=== PATIENT | male | born 1970 ===

== ENCOUNTER 2017-08-23 20:56 | Emergency (ER) | payer OTHER ==
[~2017-08-23] VITALS: Ht 175.3 cm; Wt 138.3 kg
--- NOTE | 2017-08-23 22:06 | ED DYSPNEA/ASTHMA COMPLAINT ---
History of Present Illness General Chief Complaint: Dyspnea (COPD, CHF, Other) Stated Complaint: UPPER AIRWAY IRRITATION Source: patient, family, old records, EMS Exam Limitations: no limitations Vital Signs & Intake/Output Vital Signs & Intake/Output Vital Signs Date Time Temp Pulse Resp B/P B/P Pulse O2 O2 Flow FiO2 Mean Ox Delivery Rate 08/23 2117 99 Nasal 2.0L Cannula 08/23 2105 98 Room Air 08/24 2103 98.1 124 18 163/89 98 Room Air Allergies Coded Allergies: No Known Allergies (08/23/17) Triage Note: PT BIBA FROM C/O IRRITATION TO UPPER AIRWAY. PT STATES AROUND 2019 HE PLACED A "STINK BOMB" FOR ROACHES IN HIS BATHROOM, PT THEN BEGAN TO CHOKE ON FUMES. PT ARRIVES WITH NO DISTRESS, STATES "I CAN BREATHE FINALLY" PER MEDIC, UPPER AIRWAY IRRIATION. HR ELEVATED 125, PLACED ON MONITOR. PT ARRIVED DIAPHORETIC WITH ONLY COMPLAINT OF IRRIATION TO THE THROAT. PT ABLE TO SPEAK FULL SENTENCES, A&0X3. PER MEDIC BACK OF "[facility]" CAN WAS CALLED AND COMPANY STATES "ACT LIKE TEAR GAS FOR HUMANS" Triage Nurses Notes Reviewed? yes Onset: Just prior to arrival Duration: minute(s):, constant, continues in ED Timing: recent history Severity: severe Activities at Onset: activity Prior Episodes/Possible Cause: irritant gases exposure Associated Symptoms: cough HPI: Prior to admission patient was using an insect bomb in the bathroom. He went into the bathroom to open the window began to have nonproductive cough difficulty breathing tearing eyes. He also complains of sore throat. He denies fever chills nausea vomiting diarrhea chest pain headache dysuria rash bleeding. Past History Travel History Traveled to [place] past 21 day No Medical History Any Pertinent Medical History? see below for history Cardiovascular: hypertension Endocrine: diabetes Surgical History Surgical History: non-contributory Psychosocial History What is your primary language Slovak Tobacco Use: Never used Family History Hx Contributory? No Review of Systems Review of Systems Constitutional: Reports: no symptoms. EENTM: Reports: see HPI, throat pain. Respiratory: Reports: see HPI, cough, short of breath. Cardiovascular: Reports: no symptoms. GI: Reports: no symptoms. Genitourinary: Reports: no symptoms. Musculoskeletal: Reports: no symptoms. Skin: Reports: no symptoms. Neurological/Psychological: Reports: no symptoms. Hematologic/Endocrine: Reports: no symptoms. Immunologic/Allergic: Reports: no symptoms. All Other Systems: Reviewed and Negative Physical Exam Physical Exam General Appearance: well developed/nourished, alert, awake, anxious, mild distress, obese Head: atraumatic, normal appearance Eyes: Bilateral: normal appearance, PERRL, EOMI. Ears, Nose, Throat: pharyngeal erythema, moist mucus membranes Neck: normal inspection, supple, full range of motion, no midline tenderness Respiratory: chest non-tender, no respiratory distress, quiet respiration, lungs clear, decreased breath sounds Cardiovascular: regular rate/rhythm, normal peripheral pulses, tachycardia, norml femoral pulses equa Peripheral Pulses: 4+ carotid (R), 4+ carotid (L) Gastrointestinal: normal bowel sounds, soft, non-tender, no organomegaly Extremities: normal inspection, normal capillary refill, normal range of motion, no edema Neurologic/Psych: no motor/sensory deficits, awake, alert, oriented x 3, normal gait, normal mood/affect Skin: intact, normal color, warm/dry Lymphatic: no anterior cervical russ Core Measures ACS in differential dx? No CVA/TIA Diagnosis No Sepsis Present: No Sepsis Focused Exam Completed? No Progress Differential Diagnosis: irritant gas exposure Plan of Care: Current Medications Sig/Kin Start time Last Medication Dose Stop Time Status Admin Ondansetron HCl 4 MG ONCE ONE 08/23 2214 UNVr 08/23 (Zofran) 08/23 Initial ED EKG: none Rhythm Strip: sinus tachycardia Departure Departure Time of Disposition: 2252 Disposition: HOME OR SELF CARE Condition: Stable Clinical Impression Primary Impression: Exposure to toxic gas Referrals: Julia Dumont MD (PCP/Family) Departure Forms: Customer Survey General Discharge Information RELEASE- WORK Prescriptions: Current Visit Scripts Albuterol Sulfate (Proair Hfa) 2 PUF INH Q4-6 PRN PRN bronchospasm #1 INHAL Ondansetron (Zofran Odt) 1 TAB SL TID PRN nausea #10 TAB Prednisone 1 TAB PO BID #10 TAB Critical Care Note Critical Care Note Critical Care Time: non-applicable
[2017-08-23] MEDS ORDERED: PREDNISONE20 M1 PO (22:55)
[2017-08-23] MEDS ORDERED: ZOFRAN ODT4 M1 SL (22:55)
[2017-08-23] MEDS ORDERED: PROAIR HFA8.5 GM INH (22:55)
[2017-08-23 23:00] VITALS: BP 155/79
== END 2017-08-23 23:01 ==
LOC: ERH 20:56
DX: T60.91XA Toxic effect of unspecified pesticide, accidental (unintentional), initial encounter (principal)
CPT/HCPCS: 1263; 1395; 96374; 96375; J1885; J2405; J2930